=== PATIENT | female | born 1990 | race Two or more races ===

== ENCOUNTER 2022-03-31 18:06 | Emergency (ER) | payer MEDICAID ==
[~2022-03-31] VITALS: Ht 170.2 cm; Wt 90.0 kg
[2022-03-31 18:20] VITALS: BP 99/66
[2022-03-31] MEDS ORDERED: NAPROXEN 250MG TABLET PO ONE (23:00)
[2022-03-31] MEDS ORDERED: CYCL10TA21 MT (23:12)
[2022-03-31] MEDS ORDERED: NAPR-1176 MT (23:12)
[2022-03-31] MEDS ORDERED: NAPROXEN 500MG TABLET PO NR (23:15)
== END 2022-03-31 23:56 | disposition home or self-care (01) ==
LOC: ER 18:06
DX: M25.562 Pain in left knee (principal)
CPT/HCPCS: 99283

== ENCOUNTER 2022-10-09 20:05 | Emergency (ER) | payer MEDICAID ==
[~2022-10-09] VITALS: Ht 170.2 cm; Wt 91.1 kg
[~2022-10-09 20:05] MED LIST: CYCL10TA21 MT; NAPR-1176 MT
[2022-10-09 21:10] VITALS: BP 107/64
[2022-10-09] MEDS ORDERED: KETOROLAC 60MG/2ML VIAL IM STA (21:57)
[2022-10-09] MEDS ORDERED: CYCLOBENZAPRINE 10MG TABLET PO ONE (22:00)
[2022-10-09 22:44] LABS: BASOPHILS % 0.5 % (0.0-2.0); EOSINOPHILS % 1.7 % (0.0-5.0); HEMATOCRIT. 37.3 % (36.0-48.0); HEMOGLOBIN. 12.2 g/dL (12.0-16.0); LYMPHOCYTES % 51.9 % (20.0-50.0); MEAN CORPUSCULAR HEMOGLOBIN 29.5 pg (28.0-32.0); MEAN CORPUSCULAR VOLUME 89.9 fL (81.0-99.0); MEAN PLATELET VOLUME 8.8 fl (7.4-10.4); MONOCYTES % 7.7 % (2.0-8.0); NEUTROPHILS % 38.2 % (40.0-76.0); PLATELET 229 x1000/uL (130-400); RED BLOOD CELL COUNT 4.14 mill/uL (4.2-5.4); RED CELL DISTRIBUTION WIDTH 13.7 % (11.6-14.6)
[2022-10-09 22:51] LABS: CHLORIDE 113 mEq/L (98-107)
[2022-10-09 23:15] LABS: HCG SCREEN NEGATIVE
== END 2022-10-10 01:52 | disposition home or self-care (01) ==
LOC: ER 20:05
DX: M79.10 Myalgia, unspecified site (principal); M54.2 Cervicalgia
CPT/HCPCS: 36415; 71045; 80053; 81025; 84703; 85025; 96372; 99284; J1885

== ENCOUNTER 2023-06-17 11:50 | Emergency (ER) | payer MEDICAID ==
[~2023-06-17] VITALS: Ht 170.2 cm; Wt 99.8 kg
[2023-06-17 11:59] VITALS: O2SAT 97
[2023-06-17 12:58] LABS: BASOPHILS % 0.4 % (0.0-2.0); EOSINOPHILS % 0.7 % (0.0-5.0); HEMATOCRIT. 39.1 % (36.0-48.0); HEMOGLOBIN. 12.8 g/dL (12.0-16.0); LYMPHOCYTES % 34.6 % (20.0-50.0); MEAN CORPUSCULAR HEMOGLOBIN 29.4 pg (28.0-32.0); MEAN CORPUSCULAR HGB CONC 32.7 g/dL (31.0-37.0); MEAN PLATELET VOLUME 8.2 fl (7.4-10.4); MONOCYTES % 10.9 % (2.0-8.0); NEUTROPHILS % 53.4 % (40.0-76.0); PLATELET 229 x1000/uL (130-400); RED BLOOD CELL COUNT 4.34 mill/uL (4.2-5.4); RED CELL DISTRIBUTION WIDTH 13.7 % (11.6-14.6)
[2023-06-17 13:37] LABS: ALANINE AMINOTRANSFERASE 14 IU/L (10-49); ALBUMIN 4.5 g/dL (3.2-4.8); ASPARTATE AMINOTRANSFERASE 16 IU/L (<34); BILIRUBIN TOTAL 1.8 mg/dL (0.1-1.0); CALCIUM 9.4 mg/dL (8.7-10.4); CARBON DIOXIDE 24 mEq/L (21-32); CHLORIDE 104 mEq/L (98-107); CREATININE 0.6 mg/dL (0.6-1.0); GLUCOSE 93 mg/dL (70-105); POTASSIUM 3.9 mEq/L (3.5-5.1); PROTEIN TOTAL 7.1 g/dL (6.0-8.3); SODIUM 135 mEq/L (136-145); UREA NITROGEN BLOOD 5 mg/dL (9-23)
[2023-06-17 14:50] VITALS: BP 103/63; PULSE 68; RESP 18; TEMP 98
== END 2023-06-17 14:55 | disposition home or self-care (01) ==
LOC: ER 11:50
DX: O20.9 Hemorrhage in early pregnancy, unspecified (principal); Z3A.10 10 weeks gestation of pregnancy
CPT/HCPCS: 80053; 84702; 85025; 86850; 86900; 86901; 36415; 76801; 76817; 99284; Z7610 ×4